=== PATIENT | male | born 1985 ===

== ENCOUNTER 2021-02-22 01:13 | Emergency (ER) | payer OTHER ==
[~2021-02-22] VITALS: Ht 175.3 cm; Wt 102.0 kg
[2021-02-22 01:17] VITALS: BP 127/78
[2021-02-22] MEDS ORDERED: KETOROLAC 30 MG/1 ML IVPush ONE (01:30)
[2021-02-22] MEDS ORDERED: KETOROLAC 30 MG/1 ML ONE (01:41)
--- NOTE | 2021-02-22 03:49 | NUR ---
Patient/Caregiver given discharge instructions and they have confirmed that they understand the instructions. Patient ambulatory with steady gait. NAD, all questions answered appropriately, denies additional needs at this time. No personal belongings left in room after discharge.
== END 2021-02-22 04:16 | disposition home or self-care (01) ==
LOC: ED 03:58
DX: S16.1XXA Strain of muscle, fascia and tendon at neck level, initial encounter (principal); S09.90XA Unspecified injury of head, initial encounter; R94.31 Abnormal electrocardiogram [ECG] [EKG]; X58.XXXA Exposure to other specified factors, initial encounter; Y93.89 Activity, other specified; Y92.89 Other specified places as the place of occurrence of the external cause; Y99.8 Other external cause status
CPT/HCPCS: 70450; 72125; 93005; 96374; 99285; J1885